=== PATIENT | male | born 1990 | race Caucasian/White ===

== ENCOUNTER 2017-10-31 20:08 | Inpatient (IN) | payer SELFPAY ==
[~2017-10-31] VITALS: Ht 170.2 cm; Wt 76.6 kg
[2017-10-31 20:39] LABS: HEMATOCRIT 40.8 % (38.0-50.0); HEMOGLOBIN 13.8 G/DL (12.5-16.6); MCH 31.5 PG (29.0-34.0); MCHC 33.8 G/DL (30.0-36.0); MCV 93.2 FL (86-99); PLATELET COUNT 310 K/uL (156-360); RBC DIS.WIDTH-CV 12.7 % (11.8-14.6); RBC DIS.WIDTH-SD 43.7 % (39-53); RED BLOOD COUNT 4.38 M/uL (4.00-5.50)
[2017-10-31 20:47] LABS: ALBUMIN 4.2 g/dL (3.2-4.8)
[2017-10-31 20:48] LABS: CHLORIDE 102 mEq/L (99-109); POTASSIUM 3.2 mEq/L (3.7-5.4); SODIUM 139 mEq/L (136-147)
[2017-10-31 20:50] LABS: GLUCOSE 109 mg/dL (70-99); TOTAL PROTEIN 7.7 g/dL (6.4-8.3)
[2017-10-31 20:52] LABS: TOTAL BILIRUBIN 0.6 mg/dL (0.0-1.0)
[2017-10-31 20:53] LABS: ALKALINE PHOSPHATASE 99 IU/L (3-129); SERUM ETHYL ALCOHOL < 10 mg/dL
[2017-10-31 20:54] LABS: CREATININE 0.8 mg/dL (0.6-1.3); GFR ESTIMATE (CALCULATED) > 59 mL/min/ (58.99-99999)
[2017-10-31 20:55] LABS: AST (GOT) 105 IU/L (2-34); UREA NITROGEN (BUN) 15 mg/dL (9-23)
[2017-10-31 20:57] LABS: ALT (GPT) 291 IU/L (3-49); LIPASE 6 U/L (1.0-51.0)
[2017-10-31 20:59] LABS: TROP-I INTERPRETATION NEGATIVE; TROPONIN-I < 0.01 ng/mL (0.0-0.30)
[2017-10-31 21:44] LABS: CARBON DIOXIDE (BICARBONATE) 30.3 MEQ/L (20-31)
[2017-10-31 21:52] LABS: APPEARANCE CLEAR ((CLEAR)); BILIRUBIN NEGATIVE; BLOOD NEGATIVE; COLOR YELLOW ((YELLOW)); GLUCOSE (STRIP) NEGATIVE; KETONES NEGATIVE; LEUKOCYTES NEGATIVE; NITRITE NEGATIVE; PROTEIN (STRIP) 30; SPECIFIC GRAVITY 1.039 (1.000-1.030); UCUL ADDED? NO
[2017-10-31 22:07] LABS: AMPHETAMINE NEGATIVE (500 ng/mL); BARBITURATES NEGATIVE (200 ng/mL); BENZODIAZEPINES PRESUMPTIVE POSITIVE (150 ng/mL); BUPRENORPHINE NEGATIVE (10 ng/mL); COCAINE PRESUMPTIVE POSITIVE (150 ng/mL); METHADONE NEGATIVE (200 ng/mL); METHAMPHETAMINE NEGATIVE (500 ng/mL); OPIATES (MORPHINE) PRESUMPTIVE POSITIVE (100 ng/mL); OXYCODONE NEGATIVE (100 ng/mL); PHENCYCLIDINE NEGATIVE (25 ng/mL); PROPOXYPHENE NEGATIVE (300 ng/mL); THC CANNABINOIDS PRESUMPTIVE POSITIVE (50 ng/mL); TRICYCLIC ANTIDEPRESSANTS NEGATIVE (300 ng/mL)
[2017-10-31 22:43] LABS: BENZODIAZEPINES, URINE SCREEN Negative (200 ng/mL)
[2017-11-01 00:35] LABS: BASE EXCESS 0.6 mEq/L (-3 to +3); BICARBONATE 26.6 mEq/L (22-26); CARBOXY HGB 2.9 % (0-5); COMMENTS - BLOOD GASES C+NA; DEVICE 980 VENT; FI02 50 %; MECHANICAL RATE 18 resp/min; METHEMOGLOBIN 1.1 % (0-1.5); MODE AC; PCO2 47 mm Hg (35-45); PO2 127 mm Hg (80-100); SITE LR; TIDAL VOLUME 500 ML; TOTAL RESP RATE 18 resp/min; pH 7.36 (7.35-7.45)
[2017-11-01 00:36] LABS: PEEP 5 CM/H20
[2017-11-01 01:13] VITALS: BP 129/81
== END 2017-11-01 01:14 | disposition short-term general hospital (02) | DRG 83 ==
LOC: EME → EDBD 20:08 → TRA 20:08 → EME 20:08 → EDOF 23:23 → ENRESERV 23:23 → CANRESERV 11-01 00:21 → EDOF 11-01 01:14
PROVIDERS: Emergency Medicine
DX: S02.0XXA Fracture of vault of skull, initial encounter for closed fracture (principal); S06.1X9A Traumatic cerebral edema with loss of consciousness of unspecified duration, initial encounter; S06.5X9A Traumatic subdural hemorrhage with loss of consciousness of unspecified duration, initial encounter; S06.6X9A Traumatic subarachnoid hemorrhage with loss of consciousness of unspecified duration, initial encounter; Y33.XXXA Other specified events, undetermined intent, initial encounter; Y92.411 Interstate highway as the place of occurrence of the external cause; S22.41XA Multiple fractures of ribs, right side, initial encounter for closed fracture; S40.212A Abrasion of left shoulder, initial encounter; S30.811A Abrasion of abdominal wall, initial encounter; R40.2430 Glasgow coma scale score 3-8, unspecified time; F19.129 Other psychoactive substance abuse with intoxication, unspecified
CPT/HCPCS: 36600; 70450; 70486; 71045; 71260; 72125; 72129; 72132; 74177; 80053; 81003; 82803; 83605; 83690; 84484; 84999; 85027; 85610; 86850; 86900; 86901; 93005; 94002; 99281; 99284; G0480; J1200; J1630; J2060; J7120

== ENCOUNTER 2017-11-28 13:17 | Emergency (ER) | payer OTHER ==
[~2017-11-28] VITALS: Ht 170.2 cm; Wt 72.6 kg
[2017-11-28 14:59] VITALS: BP 81/51
== END 2017-11-28 15:00 | disposition home or self-care (01) ==
LOC: EME 13:17
DX: Z48.02 Encounter for removal of sutures (principal); Z98.890 Other specified postprocedural states; Z90.49 Acquired absence of other specified parts of digestive tract; F17.200 Nicotine dependence, unspecified, uncomplicated
CPT/HCPCS: 99281; 99283